=== PATIENT | male | born 1940 | race Two or more races ===

== ENCOUNTER 2017-07-05 08:14 | Day surgery (SDC) | payer MEDICARE, MEDICAID ==
[~2017-07-05] VITALS: Ht 165.1 cm; Wt 72.1 kg
[2017-07-05] VITALS (11 sets, daily range): BP systolic 113–166; BP diastolic 60–90
[~2017-07-05 08:14] MED LIST: ceFAZolin sod 1 GM in NS 55 ML IVPB ONE
[2017-07-05] MEDS ORDERED: [UNRECOGNIZED DRUG - OTHER] PO (09:09)
[2017-07-05] MEDS ORDERED: Bupivacaine 0.5% Inj 30 ml vial INJ ONE (10:00)
[2017-07-05] MEDS ORDERED: Bacitracin 50000 Units Vial ONE (10:01)
[2017-07-05] MEDS ORDERED: cefOXitin 1gm Inj ONE (10:01)
[2017-07-05] MEDS ORDERED: Midazolam 2mg/2ml Inj ONE (10:30)
[2017-07-05] MEDS ORDERED: Ketorolac 30mg Inj ONE (10:30)
[2017-07-05] MEDS ORDERED: Sterile Water Irrig 1000ml IRRIG ONE (10:30)
[2017-07-05] MEDS ORDERED: NS Irrig 1000ml ONE (10:30)
[2017-07-05] MEDS ORDERED: fentaNYL 100 mcg/2 mL IV ONE (10:30)
[2017-07-05] MEDS ORDERED: Propofol 200mg/20ml IV ONE (10:30)
[2017-07-05] MEDS ORDERED: LR 1000ml ONE (10:30)
--- NOTE | 2017-07-05 10:36 | Anethesia Preoperative Eval ---
Anesthesia Pre-op PMH/ROS General Date of Evaluation: Jul 05, 2017 Time of Evaluation: 10:35 Anesthesiologist: Hawa ASA Score: ASA 2 Mallampati Score Class I : Soft palate, uvula, fauces, pillars visible Class II: Soft palate, uvula, fauces visible Class III: Soft palate, base of uvula visible Class IV: Only hard plate visible Mallampati Classification: Class II Surgeon: Mateo Diagnosis: R spermatocele Surgical Procedure: Excision of R spermatocele Anesthesia History: none Social History: smoking - h/o Family History: no anesthesia problems Allergies: Coded Allergies: No Known Allergies (Unverified , 07/05/17) Past Medical History Cardiovascular: Reports: HTN; Denies: CAD, VA, valve dz, arrhythmia, other Pulmonary: Denies: asthma, COPD, ARMEN, other Gastrointestinal/Genitourinary: Reports: GERD - mild, other - h/o prostate CA s /p Sx; Denies: CRI, ESRD Neurologic/Psychiatric: Denies: dementia, CVA, depression/anxiety, TIA, other Endocrine: Denies: DM, hypothyroidism, steroids, other HEENT: Denies: cataract (L), cataract (R), glaucoma, ALATNA (L), ALATNA (R), other Hematology/Immune: Reports: anemia - mild; Denies: DVT, bleeding disorder, other Musculoskeletal/Integumentary: Denies: OA, RA, DJD, DDD, edema, other PMH Narrative: as above PSxH Narrative: Prostatectomy Anesthesia Pre-op Phys. Exam Physician Exam Last Vital Signs Date Time Temp Pulse Resp B/P (MAP) Pulse Ox O2 Delivery O2 Flow Rate FiO2 07/05/17 09:14 98.1 58 19 166/90 100 Room Air 98.1 Constitutional: NAD Neurologic: CN 2-12 intact Cardiovascular: RRR, no M/R/G Respiratory: CTA Gastrointestinal: S/NT/ND Airway Exam Mallampati Score: Class II MO: full Neck: flexible ROM: full Teeth: intact Dentures: no upper, no lower Anesthesia Pre-op A/P Labs see chart Studies Pre-op Studies: EKG - NSR Risk Assessment & Plan Assessment: ASA 2 Plan: GA with LMA Status Change Before Surgery: No Pre-Antibiotics Drug: Cefaxitin 1 gr. Given Within 1 Hr of Incision: Yes Time Given: 11:04 JANE NICHOLS M.D. Jul 05, 2017 10:36
--- NOTE | 2017-07-05 10:38 | Pre-Procedure Note/Attestation ---
Pre-Procedure Note/Attestation Complete Prior to Procedure Planned Procedure: right Procedure Narrative: removal of spermatocele Indications for Procedure Pre-Operative Diagnosis: spermatocele Attestation I attest that I discussed the nature of the procedure; its benefits; risks and complications; and alternatives (and the risks and benefits of such alternatives ), prior to the procedure, with the patient (or the patient's legal representative government relations). I attest that, if there was a reasonable possibility of needing a blood transfusion, the patient (or the patient's legal representative government relations) was given the [facility] standardized written summary, pursuant to the Obed David Blood Safety Act ([place] Health and Safety Code # 1645, as amended). I attest that I re-evaluated the patient just prior to the surgery and that there has been no change in the patient's H&P, except as documented below: Jac Galindo MD Jul 05, 2017 10:38
--- NOTE | 2017-07-05 10:44 | Brief Operative Note ---
Immediate Post Operative Note Operative Note Pre-op Diagnosis: spermatocele Procedure: removal of right spermatocele Post-op Diagnosis: same Post-op Diagnosis: same as pre-op Surgeon: Lj Galindo Anesthesia: general Specimen: none Complications: none Fluids: 500 Estimated Blood Loss: minimal Implant(s) used?: No Jac Galindo MD Jul 05, 2017 10:44
[2017-07-05] MEDS ORDERED: LR 1000ml 1,000 ML IVLG SCH (11:12)
[2017-07-05] MEDS ORDERED: DiphenhydrAMINE 50mg/ml Inj IVP PRN (11:15)
[2017-07-05] MEDS ORDERED: Hydromorphone 0.5mg/0.5ml inj IVP PRN (11:15)
--- NOTE | 2017-07-05 11:40 | Immediate Post-Op Evaluation ---
Immediate Post-Op Evalulation Immediate Post-Op Evalulation Procedure: Excision of R spermatocele Date of Evaluation: Jul 05, 2017 Time of Evaluation: 11:39 IV Fluids: 1000 Blood Products: none Estimated Blood Loss: min Urinary Output: none Blood Pressure Systolic: 134 Blood Pressure Diastolic: 68 Pulse Rate: 70 Respiratory Rate: 20 O2 Sat by Pulse Oximetry: 99 Temperature (Fahrenheit): 97.6 Pain Score (1-10): 1 Nausea: No Vomiting: No Complications none Patient Status: reacts, patent, none Hydration Status: adequate JANE NICHOLS M.D. Jul 05, 2017 11:40
[2017-07-05] MEDS ORDERED: Norco 5mg/325mg tab ORAL PRN (17:01)
[2017-07-05] MEDS ORDERED: Tylenol #3 tab (300mg/30mg) ORAL PRN (17:01)
[2017-07-05] MEDS ORDERED: D5 1/2NS 1,000 ML IV SCH (17:01)
[2017-07-05] MEDS ORDERED: HYDROmorphone 1mg/ml Carpuject SUBQ PRN (17:01)
--- NOTE | 2017-07-07 20:30 | Operative Note - Dictated ---
DATE OF OPERATION: 07/05/2017 SURGEON: Jac Galindo M.D. PREOPERATIVE DIAGNOSIS: Right spermatocele. OPERATION: Right spermatocelectomy. POSTOPERATIVE DIAGNOSIS: Right spermatocele. PEDIATRIC UROLOGIST: Jac Galindo M.D. ANESTHESIA: General. FINDINGS: Right spermatocele. INDICATIONS FOR SURGERY: Chronic pain despite multiple antibiotic treatments. Treatment options were explained to the patient in great length including all potential complications. He signed a consent. DESCRIPTION OF PROCEDURE: He was brought to the operating room, placed in supine position, prepped and draped in standard fashion. Under general anesthesia, a right hemiscrotal incision was made, approximately 2.5 cm. Right testicle was brought up. Epididymidis was exposed and spermatocele was excised and then closed with 3-0 chromic suture. No evidence of bleeding. Testicle was placed back and the wound was closed in 3 layers. A subcuticular closure for the skin. Dressings applied. Sponge count and instrument count was correct. Jac Galindo M.D. DR: MARK JOB#: [id number] CC:
== END 2017-07-05 13:00 | disposition home or self-care (01) ==
LOC: SUR 08:14
DX: N43.41 Spermatocele of epididymis, single (principal); I10 Essential (primary) hypertension; E78.5 Hyperlipidemia, unspecified; K21.9 Gastro-esophageal reflux disease without esophagitis; Z85.46 Personal history of malignant neoplasm of prostate
CPT/HCPCS: 54840; J0690; J0694; J1885; J2250; J2704; J3010; J3490; J7120; 94003; 94150